=== PATIENT | female | born 1980 | race African-American/Black ===

== ENCOUNTER → 2016-10-09 | Outpatient (CLI) | payer BC ==
[~2016-10-09] MED LIST: IBUPROFEN
[2016-10-09 18:24] LABS: BASOPHILS % 0.3 % (0.0-2.0); EOSINOPHILS % 0.8 % (0.0-5.0); HEMATOCRIT. 31.6 % (36.0-48.0); LYMPHOCYTES % 31.4 % (20.0-50.0); MEAN CORPUSCULAR HEMOGLOBIN 27.9 pg (28.0-32.0); MEAN CORPUSCULAR HGB CONC 31.6 g/dL (31.0-37.0); MEAN CORPUSCULAR VOLUME 88.5 fL (81.0-99.0); MEAN PLATELET VOLUME 8.3 fl (7.4-10.4); MONOCYTES % 5.3 % (2.0-8.0); NEUTROPHILS % 62.2 % (40.0-76.0); PLATELET 306 x1000/uL (130-400); RED BLOOD CELL COUNT 3.57 mill/uL (4.2-5.4); RED CELL DISTRIBUTION WIDTH 14.6 % (11.6-14.6); WHITE BLOOD COUNT 10.7 x1000/uL (4.5-11.0)
[2016-10-09 18:46] LABS: ALANINE AMINOTRANSFERASE 18 IU/L (13-61); ALBUMIN 3.6 g/dL (3.4-5.0); ANION GAP 11; CALCIUM 8.4 mg/dL (8.5-10.1); CARBON DIOXIDE 28 mEq/L (21-32); CHLORIDE 106 mEq/L (98-107); INDEX HEMOLYSI 1 (1-3); INDEX ICTERIC 1 (1-4); INDEX LIPEMIC 1 (1-3); IRON 32 ug/dL (50-175); T4 FREE 0.83 ng/dL (0.76-1.46); TOTAL IRON BINDING CAPACITY 368 ug/dL (250-450); UREA NITROGEN BLOOD 11 mg/dL (7-21); eGFR > 60 mL/min (>60)
[2016-10-09 19:06] LABS: FOLIC ACID (FOLATE) SERUM 13.6 ng/mL (>5.38)
== END | disposition home or self-care (01) ==
LOC: LAB 17:52
PROVIDERS: ATTEND Internal Medicine Hematology & Oncology
DX: D63.8 Anemia in other chronic diseases classified elsewhere (principal)
CPT/HCPCS: 36415; 80053; 82607; 82728; 82746; 82784; 83540; 83550; 84155; 84156; 84165; 84166; 84439; 84443; 85025; 85044; 85651; 86334; 86335

== ENCOUNTER 2019-01-12 20:03 | Emergency (ER) | payer BC ==
[~2019-01-12] VITALS: Ht 170.2 cm; Wt 131.8 kg
[2019-01-12] MEDS ORDERED: CLONIDINE 0.2MG TABLET PO ONE (21:45)
[2019-01-12 22:15] LABS: CLARITY URINE CLEAR (CLEAR); COLOR URINE YELLOW (YELLOW); KETONES URINE TRACE (NEGATIVE); LEUKOCYTE ESTERASE URINE TRACE (NEGATIVE); NITRITE URINE NEGATIVE (NEGATIVE); OCCULT BLOOD URINE 3+ (NEGATIVE); PROTEIN URINE TRACE (NEGATIVE); SPECIFIC GRAVITY URINE 1.024 (1.005-1.030)
[2019-01-12] MEDS ORDERED: CEFTRIAXONE SODIUM 250 MG/VIAL IM ONE (22:15)
[2019-01-12] MEDS ORDERED: AZITHROMYCIN 500 MG TABLET PO ONE (22:15)
[2019-01-12] MEDS ORDERED: FLUCONAZOLE 100MG TABLET PO ONE (22:15)
[2019-01-12] MEDS ORDERED: LIDOCAINE HCL/PF 1% 10 MG/ML 5ML VIAL ONE (22:36)
[2019-01-12] MEDS ORDERED: FLUCONAZOLE 150MG TABLET PO NR (22:45)
[2019-01-13 01:23] VITALS: BP 125/79
== END 2019-01-13 01:25 | disposition home or self-care (01) ==
LOC: ER 20:03
DX: N89.8 Other specified noninflammatory disorders of vagina (principal); I10 Essential (primary) hypertension; L29.2 Pruritus vulvae; Z98.890 Other specified postprocedural states; Z87.891 Personal history of nicotine dependence; Z88.0 Allergy status to penicillin; Z91.040 Latex allergy status
CPT/HCPCS: 81003; 81025; 93005; 96372; 99284; J0696; J3490

== ENCOUNTER 2019-07-18 15:27 | Emergency (ER) | payer SELFPAY ==
[~2019-07-18] VITALS: Ht 170.2 cm; Wt 135.0 kg
[2019-07-18] MEDS ORDERED: SODIUM CHLORIDE 0.9% 1,000 ML IV ONE (17:26)
[2019-07-18 20:29] LABS: HCG SCREEN NEGATIVE
[2019-07-18 20:30] LABS: CHLORIDE 107 mEq/L (98-107)
[2019-07-18 20:33] LABS: BASOPHILS % 0.3 % (0.0-2.0); EOSINOPHILS % 0.8 % (0.0-5.0); HEMATOCRIT. 31.4 % (36.0-48.0); HEMOGLOBIN. 10.1 g/dL (12.0-16.0); LYMPHOCYTES % 23.5 % (20.0-50.0); MEAN CORPUSCULAR HEMOGLOBIN 28.7 pg (28.0-32.0); MEAN CORPUSCULAR VOLUME 89.2 fL (81.0-99.0); MEAN PLATELET VOLUME 8.8 fl (7.4-10.4); MONOCYTES % 4.9 % (2.0-8.0); NEUTROPHILS % 70.5 % (40.0-76.0); PLATELET 310 x1000/uL (130-400); RED BLOOD CELL COUNT 3.52 mill/uL (4.2-5.4); RED CELL DISTRIBUTION WIDTH 14.9 % (11.6-14.6)
[2019-07-18 21:30] VITALS: BP 166/78
== END 2019-07-18 21:30 | disposition home or self-care (01) ==
LOC: ER 15:27
DX: R42 Dizziness and giddiness (principal); I10 Essential (primary) hypertension; R06.02 Shortness of breath; R61 Generalized hyperhidrosis; D53.9 Nutritional anemia, unspecified; Z88.0 Allergy status to penicillin; Z91.040 Latex allergy status; Z98.890 Other specified postprocedural states; Z87.891 Personal history of nicotine dependence
CPT/HCPCS: 36415; 80053; 84484; 84703; 85025; 93005; 96360; 96361; 99284; J7030; Z7610

== ENCOUNTER 2023-08-26 14:51 | Emergency (ER) | payer BC ==
[~2023-08-26] VITALS: Ht 167.6 cm; Wt 91.0 kg
[2023-08-26 15:13] VITALS: O2SAT 100
[2023-08-26] MEDS ORDERED: PRED10TA23 MT (16:00)
[2023-08-26 16:19] VITALS: BP 135/69; PULSE 97; RESP 18; TEMP 98.5
== END 2023-08-26 16:46 | disposition home or self-care (01) ==
LOC: ER 15:04
DX: R05.9 Cough, unspecified (principal); R06.02 Shortness of breath; Z98.890 Other specified postprocedural states; Z20.822 Contact with and (suspected) exposure to COVID-19
CPT/HCPCS: 71045; 87426; 87804; 99284

== ENCOUNTER 2023-08-28 15:02 | Emergency (ER) | payer BC ==
[~2023-08-28] VITALS: Ht 172.7 cm; Wt 90.0 kg
[~2023-08-28 15:02] MED LIST changes: +PRED10TA23 MT
[2023-08-28 15:06] VITALS: O2SAT 100
[2023-08-28] MEDS ORDERED: IBUPROFEN 600MG TABLET PO NR (17:19)
[2023-08-28] MEDS ORDERED: NAPR-681 PO (17:27)
[2023-08-28] MEDS ORDERED: BACITRACIN ZINC OINT UDPKT TOP NR (17:30)
[2023-08-28 17:42] VITALS: BP 158/72; PULSE 108; RESP 18; TEMP 98.2
== END 2023-08-28 17:47 | disposition home or self-care (01) ==
LOC: ER 15:02
DX: S60.416A Abrasion of right little finger, initial encounter (principal); M54.50 Low back pain, unspecified; M47.897 Other spondylosis, lumbosacral region; M25.512 Pain in left shoulder; M79.644 Pain in right finger(s); W18.39XA Other fall on same level, initial encounter; Y93.89 Activity, other specified; Y92.89 Other specified places as the place of occurrence of the external cause; Y99.8 Other external cause status
CPT/HCPCS: 72100; 73030; 73140; 99284